=== PATIENT | male | born 1965 | race Caucasian/White ===

== ENCOUNTER 2020-01-23 09:04 | Emergency (ER) | payer MEDICARE, SELFPAY ==
[2020-01-23 09:23] VITALS: BP 159/86; PULSE 72; RESP 16; O2SAT 98; BMI 62.1
--- NOTE | 2020-01-23 09:29 | HMH.EDURI ---
ED Disposition Clinical Impression: Allergic rhinitis, Middle ear effusion Disposition: Home, Self-Care Condition on Discharge: Good Instructions: DI for Allergic Rhinitis Prescriptions: diphenhydrAMINE HCL [Benadryl] 25 mg PO BID #10 cap Transmission Status: Pending to [id number] Referrals: Derrick San [Primary Care Provider] - 3 days Time of Disposition: 09:35 - Critical Care Critical Care Time: No Attestation: On , the high probability of a clinically significant, sudden or life threatening deterioration of the following system(s) required my full and direct attention, intervention and personal management. The time I documented below is in addition to time spent performing reported procedures but includes the following listed in this critical care notation. Medical Decision Making - Medical Records Medical records reviewed: Yes: I reviewed the patient's medical records. - Leandro Inquiry Pt receiving controlled substance: No Orders (Tests/Meds): ED MEDICATIONS Discontinued Medications Generic Name Dose Route Start Last Admin Trade Name Freq PRN Reason Stop Dose Admin Acetaminophen 500 mg 01/23/20 09:20 Tylenol 500mg Tablet PO 01/23/20 09:21 ONCE ONE Lidocaine HCl 15 ml 01/23/20 09:20 Lidocaine 2% Viscous Solution 15ml Udc PO 01/23/20 09:21 ONCE ONE - Reevaluation(s) Time: 09:33 Reevaluation #1: On reevaluation, the patient is feeling better. Breathing comfortably. States that his congestion has had improved. As well as his throat pain. Patient needs to follow-up with PCP in 48 hours. Given strict return precautions. Verbalized understanding. Medical Decision Narrative: This is a 54-year-old male presenting to the emergency department with nasal congestion ear pain. On physical examination, the findings are consistent with allergic rhinitis. There is no obvious focal infection. Patient is afebrile. I did explain to the patient that he should continue his decongestant regimen. Symptoms will improve. There is no evidence of respiratory compromise. Patient treated symptomatically and reevaluated. URI/Sore Throat HPI - General Stated Complaint: drainage,sore throat ear Time Seen by Provider: 01/23/20 09:29 Mode of Arrival: Ambulatory Source of Information: Patient Limitations: No Limitations - History of Present Illness HPI Narrative: This is a 54-year-old male presented to the emergency department with nasal congestion, sore throat and ear pain. Patient is a longstanding history of allergies. She has been taking his Claritin without any relief. He states that the sore throat is more of a dull nagging pain when he swallows. He has had some hoarseness of his voice. However denies any difficulty swallowing. Patient has had some sinus pressure as well. He has had some discharge from the nose as well that is been clear. Patient's ear pain is bilateral, however slightly worse on the left. States that it just feels full. He denies any trauma or inoculation to the ears. He is not having any fevers or chills. No change in vision or eye pain. No headache. No focal weakness. Denies any chest pain or shortness of breath. No cough. No abdominal pain or vomiting. - Related Data Home Medications Medication Instructions Recorded Confirmed Aspirin [Aspir 81] 81 mg PO DAILY 01/18/18 07/16/18 Gabapentin [Gabapentin 300mg Cap] 300 mg PO TID 01/18/18 07/16/18 Levothyroxine Sodium 50 mcg PO DAILY 01/18/18 07/16/18 [Levothyroxine 50mcg (0.05mg) Tab] Metformin HCl [Glucophage 500mg 500 mg PO BID 01/18/18 07/16/18 Tablet] Ranolazine [Ranexa 500mg ER tablet] 500 mg PO BID 01/18/18 07/16/18 Simvastatin 40 mg PO BID 01/18/18 07/16/18 lisinopriL [Lisinopril 2.5mg Tab] 2.5 mg PO DAILY 01/18/18 07/16/18 Albuterol Sulfate [Albuterol HFA 1 - 2 puffs IH Q4-6H PRN 07/16/18 07/16/18 Inhaler] Cefdinir [Omnicef 300mg Capsule] 300 mg PO BID
[2020-01-23 09:53] VITALS: BP 152/87; PULSE 65; RESP 16; TEMP 36.8; O2SAT 98
== END 2020-01-23 09:54 | disposition home or self-care (01) ==
LOC: ER 09:40
PROVIDERS: Emergency Provider Emergency Medicine; PCP Family Medicine
DX: J30.9 Allergic rhinitis, unspecified (principal); H65.93 Unspecified nonsuppurative otitis media, bilateral; I10 Essential (primary) hypertension; Z87.891 Personal history of nicotine dependence; E11.9 Type 2 diabetes mellitus without complications; J44.9 Chronic obstructive pulmonary disease, unspecified; Z79.84 Long term (current) use of oral hypoglycemic drugs; Z79.899 Other long term (current) drug therapy
CPT/HCPCS: 99281

== ENCOUNTER 2022-03-08 19:34 | Emergency (ER) | payer OTHER, MEDICARE, SELFPAY ==
[2022-03-08 19:45] VITALS: BP 0/0; PULSE 0; RESP 0; TEMP -17.7; TEMP 0; O2SAT 0
== END 2022-03-08 19:46 | disposition left against medical advice (07) ==
LOC: ER 19:42
PROVIDERS: Emergency Provider Emergency Medicine; PCP Family Medicine
DX: Z53.21 Procedure and treatment not carried out due to patient leaving prior to being seen by health care provider (principal)

== ENCOUNTER 2022-03-09 07:58 | Emergency (ER) | payer MEDICARE, SELFPAY ==
[2022-03-09 08:00] VITALS: BP 147/69; PULSE 64; RESP 18; TEMP 36.7; O2SAT 97; BMI 27.6
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
--- NOTE | 2022-03-09 08:21 | XR_ITS ---
FINAL REPORT CLINICAL HISTORY: pain, swelling in right forearm FINDINGS: AP and lateral views of the right forearm are obtained. There is no prior exam for comparison. There is no acute osseous abnormality of the right forearm. The wrist and elbow are intact. There is no joint effusion at the elbow. There is mild soft tissue edema along the anterior mid forearm. No foreign body is identified. IMPRESSION: No acute osseous abnormality of the right forearm. Reviewed, Interpreted and Dictated by Kelley Hebert MD Transcribed by Makenzie Martinez Authenticated and [facility]
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
[2022-03-09 09:22] VITALS: BP 147/69; PULSE 64; RESP 18; TEMP 36.7; O2SAT 97
== END 2022-03-09 09:37 | disposition home or self-care (01) ==
PROVIDERS: Emergency Provider Nurse Practitioner; PCP Family Medicine
DX: S50.11XA Contusion of right forearm, initial encounter (principal); M25.431 Effusion, right wrist
CPT/HCPCS: 73090; 93971; 99212; G0463

== ENCOUNTER 2023-06-22 13:09 | Emergency (ER) | payer MEDICARE, SELFPAY ==
[2023-06-22 14:00] VITALS: BP 113/70; PULSE 71; RESP 18; TEMP 36.8; O2SAT 100; BMI 27.2
--- NOTE | 2023-06-22 14:26 | EXP.UTC ---
Discharge Plan Disposition Patient Disposition: Home, Self-Care Condition: Good Prescriptions Prescriptions: New azithromycin [Zithromax Z-Esteban] 250 mg tablet See Rx Instructions .ROUTE .COMPLEX 5 Days Qty: 6 0RF Rx Instructions: For 250 mg dose pack: take 500 mg today (day 1), then 250 mg for 4 days (days 2-5) methylprednisolone [Medrol (Esteban)] 4 mg tablets,dose pack See Rx Instructions .Route .COMPLEX 6 Days Qty: 21 0RF Rx Instructions: taper pack; guaifenesin [Mucinex] 600 mg tablet extended release 12hr 600 mg PO BID PRN (Reason: cough) Qty: 20 0RF No Action albuterol sulfate [Ventolin HFA] 18 GM HFA aerosol inhaler 1 - 2 puffs inhalation Q4-6H PRN (Reason: Shortness Of Breath Or Wheezing) cefdinir 300 MG capsule 300 mg PO BID hydrocodone-chlorpheniramine 115 ML suspension,extended rel 12 hr 5 ml PO Q12 PRN (Reason: Cough) Qty: 90 0RF albuterol sulfate 2.5 MG/NEB solution for nebulization 2.5 mg IH Q4-6H PRN (Reason: Shortness Of Breath Or Wheezing) Qty: 30 1RF diphenhydramine HCl 25 MG capsule 25 mg PO BID Qty: 10 0RF metformin 500 MG tablet 500 mg PO BID aspirin [Aspir-81] 81 MG tablet,delayed release (DR/EC) 81 mg PO DAILY simvastatin 40 MG tablet 40 mg PO BID levothyroxine 50 MCG tablet 50 mcg PO DAILY gabapentin 300 MG capsule 300 mg PO TID lisinopril 2.5 MG tablet 2.5 mg PO DAILY ranolazine 500 MG tablet extended release 12 hr 500 mg PO BID Referrals Follow up/Referrals: Derrick San [Primary Care Provider] - See instructions Activity Restrictions/Add. Instructions Additional Instructions/Restrictions: Start antibiotic today. Be sure to complete entire prescription even if feeling better Monitor temp. Tylenol every 4 hours as needed and / or ibuprofen every 6 hours as needed ( As long as your primary care physician has told you that it ok to take both. For fever/aches/pains ER if no less than 101 despite Tylenol or Motrin Humidifier/vaporizer or hot steamy shower Inhaler every 4-6 hours as needed like we discussed. If unsure how to use it, ask pharmacist to demonstrate how. Should help open airways and improve cough, wheezing, and shortness of breath Mucinex for your cough Be sure to drink lots of water. *Start steroid today. Helps with inflammation therefore, cough and wheezing. Follow directions on the package. Reviewed side effects. Patient reports taking them before. Follow up IMMEDIATELY for new or worsening of symptoms OR no noticeable improvement over the next 48-72 hours. 911 immediately for any life threatening symptoms such as chest pain or difficulty breathing Clinical Impressions Clinical Impression: Bronchitis Sinusitis Qualifiers: Sinusitis location: unspecified location Chronicity: unspecified Qualified Code(s): J32.9 - Chronic sinusitis, unspecified Instructions Patient Instructions: Acute Bronchitis, DI for Sinusitis Discharge ED Provider: Florencia Newell [facility] General Stated complaint: congestion Mode of Arrival: Ambulatory Source of Information: Patient Limitations: No Limitations Time Seen by Provider: 06/22/23 14:26 Description of Symptoms (Recalled from Triage Doc. by RN): PATIENT C/O CHEST CONGESTION, PRODUCTIVE COUGH, AND SINUS PRESSURE X 1 WEEK HEENT Symptoms (Recalled from RN notes): Yes Resp Symptoms (Recalled from RN notes): Yes Skin Symptoms (Recalled from RN notes): No MS Symptoms (Recalled from RN notes): No Functional Status (Recalled from RN notes): WNL History of Present Illness Provider Complaint: Patient states that he has been having sinus pain and pressure, chest congestion and productive cough for over a week now States that he feels like it is trying to move more into his chest area States that he hasnt had any shortness of breath or anything but was concerned when it has been over
[2023-06-22 15:00] VITALS: BP 113/70; PULSE 71; RESP 18; TEMP 36.8; O2SAT 100
== END 2023-06-22 15:03 | disposition home or self-care (01) ==
PROVIDERS: Emergency Provider Nurse Practitioner; PCP Family Medicine
DX: J20.9 Acute bronchitis, unspecified (principal); J01.90 Acute sinusitis, unspecified; R51.9 Headache, unspecified; R05.8 Other specified cough; R09.89 Other specified symptoms and signs involving the circulatory and respiratory systems; R09.81 Nasal congestion; J44.9 Chronic obstructive pulmonary disease, unspecified; I10 Essential (primary) hypertension; E78.5 Hyperlipidemia, unspecified; E03.9 Hypothyroidism, unspecified; Z79.84 Long term (current) use of oral hypoglycemic drugs; Z87.891 Personal history of nicotine dependence
CPT/HCPCS: 96372; 99212; 99214; G0463; J0696

== ENCOUNTER 2023-07-15 20:20 | Emergency (ER) | payer MEDICARE, SELFPAY ==
[2023-07-15 20:32] VITALS: BP 140/70; PULSE 78; RESP 19; TEMP 37.3; O2SAT 100; BMI 26.9
[2023-07-15 20:51] LABS: Influenza A, PCR Not Detected (NotDetected); Influenza B, PCR Not Detected (NotDetected)
--- NOTE | 2023-07-15 21:09 | ED_ITS ---
Discharge Plan Disposition Patient Disposition: Home, Self-Care Prescriptions Prescriptions: New iumnwjntlzmwjrw-jvpemfilf-RC [Bromfed DM] 2-30-10 mg/5 mL syrup 5 ml PO Q6H PRN (Reason: cold symptoms) 4 Days Qty: 118 0RF Rx Instructions: Do not combine with guaifenesin/dextromethorphan No Action albuterol sulfate [Ventolin HFA] 18 GM HFA aerosol inhaler 1 - 2 puffs inhalation Q4-6H PRN (Reason: Shortness Of Breath Or Wheezing) cefdinir 300 MG capsule 300 mg PO BID hydrocodone-chlorpheniramine 115 ML suspension,extended rel 12 hr 5 ml PO Q12 PRN (Reason: Cough) Qty: 90 0RF albuterol sulfate 2.5 MG/NEB solution for nebulization 2.5 mg IH Q4-6H PRN (Reason: Shortness Of Breath Or Wheezing) Qty: 30 1RF diphenhydramine HCl 25 MG capsule 25 mg PO BID Qty: 10 0RF azithromycin [Zithromax Z-Esteban] 250 mg tablet See Rx Instructions .ROUTE .COMPLEX 5 Days Qty: 6 0RF Rx Instructions: For 250 mg dose pack: take 500 mg today (day 1), then 250 mg for 4 days (days 2-5) methylprednisolone [Medrol (Esteban)] 4 mg tablets,dose pack See Rx Instructions .Route .COMPLEX 6 Days Qty: 21 0RF Rx Instructions: taper pack; guaifenesin [Mucinex] 600 mg tablet extended release 12hr 600 mg PO BID PRN (Reason: cough) Qty: 20 0RF metformin 500 MG tablet 500 mg PO BID aspirin [Aspir-81] 81 MG tablet,delayed release (DR/EC) 81 mg PO DAILY simvastatin 40 MG tablet 40 mg PO BID levothyroxine 50 MCG tablet 50 mcg PO DAILY gabapentin 300 MG capsule 300 mg PO TID lisinopril 2.5 MG tablet 2.5 mg PO DAILY ranolazine 500 MG tablet extended release 12 hr 500 mg PO BID Referrals Follow up/Referrals: Derrick San [Primary Care Provider] - See instructions Activity Restrictions/Add. Instructions Additional Instructions/Restrictions: At this time it was felt you are safe to be discharged home. If new or worsening symptoms please do not hesitate to return the emergency department. If symptoms persist please follow-up with your family doctor as you are able. Please take your medication as prescribed and do not take longer than 4 to 5 days as discussed. Clinical Impressions Clinical Impression: Acute viral syndrome Discharge ED Provider: Arian Olmos General Adult HPI General Chief complaint: Upper Respiratory Infection Stated complaint: covid + home test today, weak , runny nose Time Seen by Provider: 07/15/23 20:55 Mode of Arrival: Family Vehicle Source of Information: Patient Limitations: No Limitations Description of Symptoms (Recalled from ER Triage Doc. by RN): 57 yo male tested positive with covid test at home. Presents with cough, nasal drainage, body aches, ears feel full. Denies dyspnea, angina, n/v/d, LEIAV. Low grade fever. History of Present Illness HPI narrative: Patient is a 57-year-old male with past medical history of coronary artery disease, COPD not on home oxygen who presents emergency department for evaluation after a positive COVID test. Patient has been feeling unwell all month, over the last 48 hours he has had cough, nasal drainage, diffuse bodyaches. Adequate p.o. intake. Due to this he presents here for continued evaluation. Related Data Home Medications Medication Instructions Recorded Confirmed aspirin 81 mg tablet,delayed 81 mg PO DAILY Blood thinner 01/18/18 07/16/18 release (Aspir-) gabapentin 300 mg capsule 300 mg PO TID Pain 01/18/18 07/16/18 levothyroxine 50 mcg tablet 50 mcg PO DAILY thyroid 01/18/18 07/16/18 lisinopril 2.5 mg tablet 2.5 mg PO DAILY htn 01/18/18 07/16/18 metformin 500 mg tablet 500 mg PO BID Diabetes 01/18/18 07/16/18 ranolazine 500 mg tablet,extended 500 mg PO BID . 01/18/18 07/16/18 release,12 hr simvastatin 40 mg tablet 40 mg PO BID High cholesterol 01/18/18 07/16/18 albuterol sulfate 90 mcg/actuation 1 - 2 puffs inhalation Q4-6H PRN 07/16/18 07/16/18 aerosol inhaler (Ventolin HFA) Shortness Of Breath Or Wheezing cefdinir 300 mg capsule 300 mg PO BID Sinus infection 07/16/18 07/16/18 Previous Rx's Medication Instructions Recorded albuterol sulfate 2.5 mg/3 mL 2.5 mg (3 mL) IH Q4-6H PRN 07/16/18 (0.083 %) solution for nebulization Shortness Of Breath Or Wheezing #30 neb hydrocodone 10 mg-chlorpheniramine 5 ml PO Q12 PRN Cough ##90 07/16/18 8 mg/5 mL oral susp extend.rel 12hr diphenhydramine HCl 25 mg capsule 25 mg PO BID #10 caps 01/23/20 azithromycin 250 mg tablet See Rx Instructions PO .COMPLEX 5 06/22/23 (Zithromax Z-Esteban) days #6 tabs guaifenesin 600 mg tablet, 600 mg PO BID PRN cough #20 tabs 06/22/23 extended release 12 hr (Mucinex) methylprednisolone 4 mg tablets in See Rx Instructions .Route 06/22/23 a dose pack (Medrol (Esteban)) .COMPLEX 6 days #21 tabs pelsbasofbznkxx-uepebyroxebqagc-PD 5 ml PO Q6H PRN cold symptoms 4 07/15/23 2 mg-30 mg-10 mg/5 mL oral syrup days #118 mL (Bromfed DM) Allergies Allergy/AdvReac Type Severity Reaction Status Date / Time No Known Allergies Allergy Verified 01/18/18 21:51 [facility] Disclaimer: The information contained in this section may have been updated after the patient was seen, as this information can be updated by other users. Medical History (Updated 07/15/23 @ 21:14 by Arian Olmos MD) Hyperlipidemia Hypertension Social History Smoking Status: Former smoker alcohol intake: never current occupational status: employed Travel in the last 8 weeks: None ROS Obtained: Yes Systems reviewed as appropriate & no additional complaints except as documented Physical Exam General General appearance: alert and in no apparent distress Head Head exam: atraumatic and normocephalic Eye Eye exam: Present PERRL and EOMI ENT ENT exam: Present mucous membranes moist; Absent normal oropharynx (Mildly erythematous posterior oropharynx, uvula midline, no purulence) Neck Neck exam: Present normal inspection Chest Chest inspection: Present normal inspection and symmetric chest wall rise Respiratory Respiratory exam: Present normal lung sounds bilaterally; Absent respiratory distress, wheezes, accessory muscle use or prolonged expiratory phase Cardiovascular Cardiovascular exam: Present regular rate and normal rhythm Abdominal Exam Abdominal exam: Present soft Extremities Exam Extremities exam: Present normal inspection Neurological Exam Neurological exam: Present alert Psychiatric Psychiatric exam: Present normal affect Skin Skin exam: Present warm and dry Medical Decision Making Leandro Inquiry Pt receiving controlled substance: No Vital Signs: 07/15/23 20:32 Temperature 99.1 F Temperature Source Oral Pulse Rate [Right Brachial] 78 Respiratory Rate 19 Blood Pressure [Right Arm] 140/70 Blood Pressure Mean [Right Arm] 93 Blood Pressure Source [Right Arm] Automatic Cuff Blood Pressure Position [Right Arm] Sitting 02 Sat by Pulse Oximetry 100 Oxygen Delivery Method Room Air Orders (Tests/Meds): ED MEDICATIONS Generic Name Dose Route Start Last Admin Trade Name Freq PRN Reason Stop Dose Admin Acetaminophen 1,000 mg 07/15/23 21:08 Acetaminophen 500mg Tab PO 07/15/23 21:09 ONCE ONE Guaifenesin 5 ml 07/15/23 21:07 Guaifenesin/Dextromethorphan 200mg/20mg 10ml Udc PO 07/15/23 21:08 ONCE ONE Ibuprofen 800 mg 07/15/23 21:08 Ibuprofen 400 Mg Tablet PO 07/15/23 21:09 ONCE ONE ORDERS Category Date Time Status Rapid PCR Covid and Flu A/B Stat Lab 07/15/23 20:35 Received Medical Decision Narrative: In summary patient is a 57-year-old male with past medical history described above who presents emergency department for evaluation of cough, body aches in the setting of positive home COVID test. Patient is hemodynamically stable nontoxic-appearing upon arrival, afebrile, saturating 100% on room air, no respiratory distress. Differential includes COVID, influenza, among others. Workup will be conducted with viral swab. Chest x-ray was considered however given patient is not in respiratory distress and is clear to auscultation all lung wren will be deferred. Initial interventions include Tylenol, ibuprofen, Robitussin. Although patient has COPD he has no wheezing currently that would require steroids or DuoNeb's. Discussion has projected disease course was had at bedside and patient is appropriate for discharge at this time will be discharged with a course of Bromfed and was given return precautions and verbalized understanding. Critical Care Critical Care Time Critical Care Time: No
[2023-07-15 21:32] LABS: Coronavirus 19, PCR Detected (NotDetected)
[2023-07-15] MEDS: GUAIFENESIN/DEXTROMETHORPHAN 200MG/20MG 10ML UDC 5 ML PO (21:41)
[2023-07-15] MEDS: ACETAMINOPHEN 500MG TAB 1000 MG PO (21:41)
[2023-07-15] MEDS: IBUPROFEN 400 MG TABLET 800 MG PO (21:41)
[2023-07-15 21:48] VITALS: BP 156/72; PULSE 79; RESP 16; TEMP 37.1; O2SAT 97
== END 2023-07-15 21:50 | disposition home or self-care (01) ==
PROVIDERS: Emergency Provider Emergency Medicine; PCP Family Medicine
DX: R05.9 Cough, unspecified (principal); R50.9 Fever, unspecified; B34.9 Viral infection, unspecified; J44.9 Chronic obstructive pulmonary disease, unspecified; I25.10 Atherosclerotic heart disease of native coronary artery without angina pectoris; I10 Essential (primary) hypertension; E78.5 Hyperlipidemia, unspecified; Z87.891 Personal history of nicotine dependence
CPT/HCPCS: 87636; 99283

== ENCOUNTER 2024-07-08 11:44 | Emergency (ER) | payer MEDICARE, SELFPAY ==
--- NOTE | 2024-07-08 12:12 | ED_ITS ---
Discharge Plan Disposition Patient Disposition: Home, Self-Care Condition: Good Prescriptions Prescriptions: New benzonatate 100 mg capsule 100 mg PO TIDP PRN (Reason: Cough) Qty: 30 0RF amoxicillin-pot clavulanate 875-125 mg Tablet 1 tab PO Q12H Qty: 20 0RF methylprednisolone 4 mg Tablets,Dose Pack 4 mg PO DIRECTED 6 Days Qty: 21 0RF Rx Instructions: Take 1 pack as directed for 6 days No Action albuterol sulfate [Ventolin HFA] 18 GM HFA aerosol inhaler 1 - 2 puffs inhalation Q4-6H PRN (Reason: Shortness Of Breath Or Wheezing) cefdinir 300 MG capsule 300 mg PO BID hydrocodone-chlorpheniramine 115 ML suspension,extended rel 12 hr 5 ml PO Q12 PRN (Reason: Cough) Qty: 90 0RF albuterol sulfate 2.5 MG/NEB solution for nebulization 2.5 mg IH Q4-6H PRN (Reason: Shortness Of Breath Or Wheezing) Qty: 30 1RF diphenhydramine HCl 25 MG capsule 25 mg PO BID Qty: 10 0RF azithromycin [Zithromax Z-Esteban] 250 mg tablet See Rx Instructions .ROUTE .COMPLEX 5 Days Qty: 6 0RF Rx Instructions: For 250 mg dose pack: take 500 mg today (day 1), then 250 mg for 4 days (days 2-5) methylprednisolone [Medrol (Esteban)] 4 mg tablets,dose pack See Rx Instructions .Route .COMPLEX 6 Days Qty: 21 0RF Rx Instructions: taper pack; guaifenesin [Mucinex] 600 mg tablet extended release 12hr 600 mg PO BID PRN (Reason: cough) Qty: 20 0RF metformin 500 MG tablet 500 mg PO BID aspirin [Aspir-81] 81 MG tablet,delayed release (DR/EC) 81 mg PO DAILY simvastatin 40 MG tablet 40 mg PO BID levothyroxine 50 MCG tablet 50 mcg PO DAILY gabapentin 300 MG capsule 300 mg PO TID lisinopril 2.5 MG tablet 2.5 mg PO DAILY ranolazine 500 MG tablet extended release 12 hr 500 mg PO BID liedenzuzviivks-rtcsjevfh-JB [Bromfed DM] 2-30-10 mg/5 mL syrup 5 ml PO Q6H PRN (Reason: cold symptoms) 4 Days Qty: 118 0RF Rx Instructions: Do not combine with guaifenesin/dextromethorphan Referrals Follow up/Referrals: Derrick San [Primary Care Provider] - See instructions Activity Restrictions/Add. Instructions Additional Instructions/Restrictions: Drink plenty of fluids. Take tylenol or ibuprofen for pain or fever. Take the medications as directed. Follow up with your regular doctor. GO TO THE ER FOR ANY WORSENING SYMPTOMS Clinical Impressions Clinical Impression: Middle ear effusion Sinusitis Qualifiers: Sinusitis location: unspecified location Chronicity: unspecified Qualified Code(s): J32.9 - Chronic sinusitis, unspecified Instructions Patient Instructions: Sinusitis, DI for Sinusitis Print Language Print Language: Greek Discharge ED Provider: Eligio Benitez [facility] General Stated complaint: drainage, ear pain, sinus congestion Time Seen by Provider: 07/08/24 12:12 Related Data Home Medications ?Medication ?Instructions ?Recorded ?Confirmed aspirin 81 mg tablet,delayed 81 mg PO DAILY Blood thinner 01/18/18 07/16/18 release (Aspir-) gabapentin 300 mg capsule 300 mg PO TID Pain 01/18/18 07/16/18 levothyroxine 50 mcg tablet 50 mcg PO DAILY thyroid 01/18/18 07/16/18 lisinopril 2.5 mg tablet 2.5 mg PO DAILY htn 01/18/18 07/16/18 metformin 500 mg tablet 500 mg PO BID Diabetes 01/18/18 07/08/24 ranolazine 500 mg tablet,extended 500 mg PO BID . 01/18/18 07/08/24 release,12 hr simvastatin 40 mg tablet 40 mg PO BID High cholesterol 01/18/18 07/08/24 albuterol sulfate 90 mcg/actuation 1 - 2 puffs inhalation Q4-6H PRN 07/16/18 07/16/18 aerosol inhaler (Ventolin HFA) Shortness Of Breath Or Wheezing cefdinir 300 mg capsule 300 mg PO BID Sinus infection 07/16/18 07/16/18 Previous Rx's ?Medication ?Instructions ?Recorded albuterol sulfate 2.5 mg/3 mL 2.5 mg (3 mL) IH Q4-6H PRN 07/16/18 (0.083 %) solution for nebulization Shortness Of Breath Or Wheezing #30 neb hydrocodone 10 mg-chlorpheniramine 5 ml PO Q12 PRN Cough ##90 07/16/18 8 mg/5 mL oral susp extend.rel 12hr diphenhydramine HCl 25 mg capsule 25 mg PO BID #10 caps 01/23/20 azithromycin 250 mg tablet See Rx Instructions PO .COMPLEX 5 06/22/23 (Zithromax Z-Esteban) days #6 tabs guaifenesin 600 mg tablet, 600 mg PO BID PRN cough #20 tabs 06/22/23 extended release 12 hr (Mucinex) methylprednisolone 4 mg tablets in See Rx Instructions .Route 06/22/23 a dose pack (Medrol (Esteban)) .COMPLEX 6 days #21 tabs gbsmwafmnecinmz-azjbqzmezammyke-[place] 5 ml PO Q6H PRN cold symptoms 4 07/15/23 2 mg-30 mg-10 mg/5 mL oral syrup days #118 mL (Bromfed DM) amoxicillin 875 mg-potassium 1 tab PO Q12H #20 tabs 07/08/24 clavulanate 125 mg tablet benzonatate 100 mg capsule 100 mg PO TIDP PRN Cough #30 caps 07/08/24 methylprednisolone 4 mg tablets in 4 mg PO DIRECTED 6 days #21 tabs 07/08/24 a dose pack Allergies Allergy/AdvReac Type Severity Reaction Status Date / Time No Known Allergies Allergy Verified 01/18/18 21:51 [facility] Disclaimer: The information contained in this section may have been updated after the patient was seen, as this information can be updated by other users. Medical History (Updated 07/08/24 @ 12:59 by Eligio Benitez APRN) Hyperlipidemia Hypertension Social History Smoking Status: Former smoker alcohol intake: never current occupational status: employed Travel in the last 8 weeks: None Have you lived/traveled outside [place] in past 30 days?: No Contact w/someone who lives/traveled outside [place] past 30 days?: No Exposure to someone with infectious disease in past 14 days?: No Do you have a fever (greater than 100.4 F or 38 C)?: No Have you tested positive for COVID-19: No Exposed to someone with COVID-19 in past 14 days?: No Do you have a sore throat?: No Do you have a cough?: No Do you have any weakness?: No Do you have any diarrhea?: No Are you experiencing any unusual bleeding?: No Do you have any muscle aches/pain?: No Do you have any abdominal pain?: No Are you experiencing loss of taste or smell?: No ROS Obtained: Yes All systems reviewed & no additional complaints except as documented Constitutional Constitutional: Denies chills, Reports fever(s) and Reports poor appetite Eyes Eyes: Denies eye discharge ENT Ears, Nose, Mouth, and Throat: Denies ear discharge, Reports otalgia, Denies hearing loss, Denies sinus pain and Reports sore throat Cardiovascular Cardiovascular: Denies chest pain and Denies dyspnea Respiratory Respiratory: Denies chest congestion, Reports cough and Denies dyspnea Gastrointestinal Gastrointestingal: Denies abdominal pain, diarrhea, nausea or vomiting Musculoskeletal Musculoskeletal: Denies arthralgias Integumentary/Breasts Skin/Breast: Denies rash Physical Exam General General appearance: alert and in no apparent distress Head Head exam: atraumatic, normocephalic and normal inspection Eye Eye exam: Present normal appearance; Absent PERRL or EOMI ENT ENT exam: Present mucous membranes moist and normal external ear exam Expanded ENT Exam TM/Canal exam: Bilateral TM: erythema, bulging and effusion Nose exam: Absent sinus tenderness Nasal speculum exam: Bilateral: normal Mouth exam: Present normal external inspection and other; Absent drooling Teeth exam: Present normal inspection Throat exam: Present tonsillar erythema and tonsillomegaly Neck Neck exam: Present normal inspection, full ROM and trachea midline; Absent tenderness, meningismus or lymphadenopathy Chest Chest inspection: Present normal inspection and symmetric chest wall rise; Absent tenderness Respiratory Respiratory exam: Present normal lung sounds bilaterally; Absent respiratory distress, wheezes or stridor Cardiovascular Cardiovascular exam: Present regular rate, normal rhythm and normal heart sounds; Absent tachycardia or irregular rhythm Abdominal Exam Abdominal exam: Present soft and normal bowel sounds; Absent distention, tenderness, guarding, rebound or rigidity Extremities Exam Extremities exam: Present normal inspection and normal capillary refill; Absent tenderness, joint swelling or calf tenderness Back Exam Back exam: Present normal inspection and full ROM; Absent tenderness, CVA tenderness (R) or CVA tenderness (L) Neurological Exam Neurological exam: Present alert, oriented X3, CN II-XII intact, normal gait and reflexes normal; Absent motor sensory deficit Psychiatric Psychiatric exam: Present normal affect and normal mood Skin Skin exam: Present warm, dry, intact and normal color Lymphatic Lymphatic Findings: no adenopathy Medical Decision Making Medical Records Medical records reviewed: No I reviewed the patient's medical records. Screening: Per USPSTF and CDC recommendations, given the prevalence of disease in our region, it is our hospital?s policy to screen for HIV and viral Hepatitis for all patients aged 18 and over and those with ongoing risk factors. Leandro Inquiry Pt receiving controlled substance: No Lab Data Lab results reviewed: Yes I reviewed the patient's lab results.
[2024-07-08 12:15] VITALS: BP 137/74; PULSE 65; RESP 18; TEMP 36.8; O2SAT 95; BMI 27.8
[2024-07-08 12:19] LABS: UTC Strep Screen (Rapid) Negative (Negative)
[2024-07-08 13:04] VITALS: BP 137/74; PULSE 65; RESP 18; TEMP 36.8
[2024-07-08] MEDS: DEXAMETHASONE 4MG/ML 1ML VIAL 8 MG IM (13:07)
[2024-07-08 13:10] LABS: Coronavirus 19, PCR Not Detected (NotDetected); Influenza A, PCR Not Detected (NotDetected); Influenza B, PCR Not Detected (NotDetected)
== END 2024-07-08 13:24 | disposition home or self-care (01) ==
PROVIDERS: Emergency Provider Nurse Practitioner Family; PCP Family Medicine
DX: J32.9 Chronic sinusitis, unspecified (principal); H65.90 Unspecified nonsuppurative otitis media, unspecified ear; R50.9 Fever, unspecified; H92.03 Otalgia, bilateral; R09.81 Nasal congestion; J02.9 Acute pharyngitis, unspecified; R05.9 Cough, unspecified; R63.8 Other symptoms and signs concerning food and fluid intake
CPT/HCPCS: 87636; 87880; 96372; 99212; G0381; J1100

== ENCOUNTER 2024-07-17 07:08 | Emergency (ER) | payer MEDICARE, SELFPAY ==
[2024-07-17] VITALS (11 sets, daily range): BP systolic 134–158; BP diastolic 63–78; PULSE 64–79; RESP 18; TEMP 36.7–36.9; O2SAT 96–100; BMI 27.3
--- NOTE | 2024-07-17 07:40 | PC.NURSE ---
dr joy at bedside
--- NOTE | 2024-07-17 07:51 | CT_ITS ---
FINAL REPORT TECHNIQUE: Thin section axial CT images with coronal and sagittal reformats were performed after the administration of IV contrast. This study was performed with techniques to keep radiation doses as low as reasonably achievable (ALARA). Individualized dose reduction techniques using automated exposure control or adjustment of mA and/or kV according to the patient''s size were employed. CLINICAL HISTORY: left submandibular mass/swelling FINDINGS: The nasopharynx and oropharynx are unremarkable. The epiglottis is normal. The larynx is unremarkable. There is an enlargement of the left submandibular/salivary gland with surrounding edema. There are multiple adjacent small lymph nodes. Findings are most consistent with sialadenitis. There is no loculated fluid collection. The right submandibular/salivary and bilateral parotid glands are unremarkable. The thyroid gland is homogeneous. Bilateral cervical lymph nodes are favored to be reactive. A small mucous retention cyst or polyp is seen in the left maxillary sinus. There is no air-fluid level in the paranasal sinuses. The mastoid air cells are clear. No acute osseous changes are seen. IMPRESSION: Left submandibular sialadenitis with reactive lymphadenopathy. Reviewed, Interpreted and Dictated by Kelley Hebert MD Transcribed by Clair Mcdaniels Authenticated and [facility]
--- NOTE | 2024-07-17 07:56 | XR_ITS ---
FINAL REPORT CLINICAL HISTORY: cough x 1 week COMPARISON: 07/16/2018 FINDINGS: PA and lateral views of the chest were obtained. The patient is status post median sternotomy. The cardiac and mediastinal silhouettes are within normal limits. The lungs are clear. There is no pleural effusion or pneumothorax. No acute osseous abnormality is identified. IMPRESSION: No radiographic evidence of acute cardiac or pulmonary disease. Reviewed, Interpreted and Dictated by Kelley Hebert MD Transcribed by Clair Mcdaniels Authenticated and [facility]
--- NOTE | 2024-07-17 08:01 | HMH.EDGENADL ---
Discharge Plan Disposition Patient Disposition: Home, Self-Care Prescriptions Prescriptions: New paeacqlpdpzecyy-divknlhto-MT 2-30-10 mg/5 mL syrup 5 ml PO Q6H PRN (Reason: cold symptoms) 7 Days Qty: 118 0RF No Action albuterol sulfate [Ventolin HFA] 18 GM HFA aerosol inhaler 1 - 2 puffs inhalation Q4-6H PRN (Reason: Shortness Of Breath Or Wheezing) cefdinir 300 MG capsule 300 mg PO BID hydrocodone-chlorpheniramine 115 ML suspension,extended rel 12 hr 5 ml PO Q12 PRN (Reason: Cough) Qty: 90 0RF albuterol sulfate 2.5 MG/NEB solution for nebulization 2.5 mg IH Q4-6H PRN (Reason: Shortness Of Breath Or Wheezing) Qty: 30 1RF diphenhydramine HCl 25 MG capsule 25 mg PO BID Qty: 10 0RF azithromycin [Zithromax Z-Esteban] 250 mg tablet See Rx Instructions .ROUTE .COMPLEX 5 Days Qty: 6 0RF Rx Instructions: For 250 mg dose pack: take 500 mg today (day 1), then 250 mg for 4 days (days 2-5) methylprednisolone [Medrol (Esteban)] 4 mg tablets,dose pack See Rx Instructions .Route .COMPLEX 6 Days Qty: 21 0RF Rx Instructions: taper pack; guaifenesin [Mucinex] 600 mg tablet extended release 12hr 600 mg PO BID PRN (Reason: cough) Qty: 20 0RF metformin 500 MG tablet 500 mg PO BID aspirin [Aspir-81] 81 MG tablet,delayed release (DR/EC) 81 mg PO DAILY simvastatin 40 MG tablet 40 mg PO BID levothyroxine 50 MCG tablet 50 mcg PO DAILY gabapentin 300 MG capsule 300 mg PO TID lisinopril 2.5 MG tablet 2.5 mg PO DAILY ranolazine 500 MG tablet extended release 12 hr 500 mg PO BID pzlcsiysodqpttu-pmwcnsjiq-GI [Bromfed DM] 2-30-10 mg/5 mL syrup 5 ml PO Q6H PRN (Reason: cold symptoms) 4 Days Qty: 118 0RF Rx Instructions: Do not combine with guaifenesin/dextromethorphan benzonatate 100 mg capsule 100 mg PO TIDP PRN (Reason: Cough) Qty: 30 0RF amoxicillin-pot clavulanate 875-125 mg Tablet 1 tab PO Q12H Qty: 20 0RF methylprednisolone 4 mg Tablets,Dose Pack 4 mg PO DIRECTED 6 Days Qty: 21 0RF Rx Instructions: Take 1 pack as directed for 6 days Referrals Follow up/Referrals: Miki Wong MD [Physician] - See instructions Derrick San [Primary Care Provider] - See instructions Activity Restrictions/Add. Instructions Additional Instructions/Restrictions: As discussed your symptoms are consistent with viral sialoadenitis caused from influenza A. This is essentially a localized infection of your submandibular gland caused from a virus which will be self-limiting. No specific treatment exists other than allowing the virus to run its course. You are outside of any window of treatment for antiviral medications as discussed. This is not a bacterial infection therefore you may discontinue antibiotics. Please follow-up with ENT to ensure complete resolution of your symptoms if you would like otherwise you may follow-up with your primary care doctor. Clinical Impressions Clinical Impression: Submandibular sialoadenitis, Influenza A Instructions Patient Instructions: DI for Skin Abscess Print Language Print Language: Czech Discharge ED Provider: Mariia Gonzalez General Adult HPI General Chief complaint: Skin/Abscess/Foreign Body Stated complaint: Swelling to L side of neck, feel draining in mouth Time Seen by Provider: 07/17/24 07:39 Mode of Arrival: Ambulatory Source of Information: Patient Limitations: No Limitations Description of Symptoms (Recalled from ER Triage Doc. by RN): left sided swelling to neck with a bad tast in his mouth. currently on antibiotics. History of Present Illness HPI narrative: Patient is a 58-year-old male presenting today with left submandibular swelling. First noted this on Nani. However he did have a preceding cough and respiratory infection which she was seen in the urgent treatment clinic and was swabbed for COVID and flu which were negative and started on Augmentin as well as steroids without any improvement. Though symptoms remain. Denies any mass or neck swelling prior to a few days ago. No fevers or chills. No history of stones or pus coming from his mouth. Related Data Home Medications ?Medication ?Instructions ?Recorded ?Confirmed aspirin 81 mg tablet,delayed 81 mg PO DAILY Blood thinner 01/18/18 07/16/18 release (Aspir-) gabapentin 300 mg capsule 300 mg PO TID Pain 01/18/18 07/16/18 levothyroxine 50 mcg tablet 50 mcg PO DAILY thyroid 01/18/18 07/16/18 lisinopril 2.5 mg tablet 2.5 mg PO DAILY htn 01/18/18 07/16/18 metformin 500 mg tablet 500 mg PO BID Diabetes 01/18/18 07/08/24 ranolazine 500 mg tablet,extended 500 mg PO BID . 01/18/18 07/08/24 release,12 hr simvastatin 40 mg tablet 40 mg PO BID High cholesterol 01/18/18 07/08/24 albuterol sulfate 90 mcg/actuation 1 - 2 puffs inhalation Q4-6H PRN 07/16/18 07/16/18 aerosol inhaler (Ventolin HFA) Shortness Of Breath Or Wheezing cefdinir 300 mg capsule 300 mg PO BID Sinus infection 07/16/18 07/16/18 Previous Rx's ?Medication ?Instructions ?Recorded albuterol sulfate 2.5 mg/3 mL 2.5 mg (3 mL) IH Q4-6H PRN 07/16/18 (0.083 %) solution for nebulization Shortness Of Breath Or Wheezing #30 neb hydrocodone 10 mg-chlorpheniramine 5 ml PO Q12 PRN Cough ##90 07/16/18 8 mg/5 mL oral susp extend.rel 12hr diphenhydramine HCl 25 mg capsule 25 mg PO BID #10 caps 01/23/20 azithromycin 250 mg tablet See Rx Instructions PO .COMPLEX 5 06/22/23 (Zithromax Z-Esteban) days #6 tabs guaifenesin 600 mg tablet, 600 mg PO BID PRN cough #20 tabs 06/22/23 extended release 12 hr (Mucinex) methylprednisolone 4 mg tablets in See Rx Instructions .Route 06/22/23 a dose pack (Medrol (Esteban)) .COMPLEX 6 days #21 tabs xjhdvzrrxbighjc-sjealclckvlqstu-AB 5 ml PO Q6H PRN cold symptoms 4 07/15/23 2 mg-30 mg-10 mg/5 mL oral syrup days #118 mL (Bromfed DM) amoxicillin 875 mg-potassium 1 tab PO Q12H #20 tabs 07/08/24 clavulanate 125 mg tablet benzonatate 100 mg capsule 100 mg PO TIDP PRN Cough #30 caps 07/08/24 methylprednisolone 4 mg tablets in 4 mg PO DIRECTED 6 days #21 tabs 07/08/24 a dose pack clmgwjkewlcwjzs-epzawcijckbhrim-UT 5 ml PO Q6H PRN cold symptoms 7 07/17/24 2 mg-30 mg-10 mg/5 mL oral syrup days #118 mL Allergies Allergy/AdvReac Type Severity Reaction Status Date / Time No Known Allergies Allergy Verified 01/18/18 21:51 [facility] Disclaimer: The information contained in this section may have been updated after the patient was seen, as this information can be updated by other users. Medical History (Updated 07/17/24 @ 09:32 by Mariia Gonzalez MD) Hyperlipidemia Hypertension Social History Smoking Status: Never smoker alcohol intake: never current occupational status: employed Travel in the last 8 weeks: None Have you lived/traveled outside [place] in past 30 days?: No Contact w/someone who lives/traveled outside [place] past 30 days?: No Exposure to someone with infectious disease in past 14 days?: No Do you have a fever (greater than 100.4 F or 38 C)?: No Have you tested positive for COVID-19: No Exposed to someone with COVID-19 in past 14 days?: No Do you have a sore throat?: No Do you have a cough?: No Do you have any weakness?: No Do you have any diarrhea?: No Are you experiencing any unusual bleeding?: No Do you have any muscle aches/pain?: No Do you have any abdominal pain?: No Are you experiencing loss of taste or smell?: No Other Medical History Have you received the Flu Vaccine for this season: No Have you received the Pneumonia Vaccine: No ROS Obtained: Yes All systems reviewed & no additional complaints except as documented Physical Exam General General appearance: alert Neck Neck exam: Present other (Left unilateral submandibular swelling and firmness about 5 x 5 cm nonfluctuant nonmobile no stones noted within the mouth itself near any of the ductal openings no purulence coming from the mouth) Respiratory Respiratory exam: Present normal lung sounds bilaterally Cardiovascular Cardiovascular exam: Present regular rate Neurological Exam Neurological exam: Present alert and oriented X3 Medical Decision Making Medical Records Screening: Per USPSTF and CDC recommendations, given the prevalence of disease in our region, it is our hospital?s policy to screen for HIV and viral Hepatitis for all patients aged 18 and over and those with ongoing risk factors. Leandro Inquiry Pt receiving controlled substance: No Vital Signs: 07/17/24 07:10 07/17/24 07:14 07/17/24 07:30 Temperature 98.4 F Temperature Source Oral Pulse Rate 67 64 Pulse Rate [Right] 68 Respiratory Rate 18 Blood Pressure 144/64 H 140/63 Blood Pressure [Right Arm] 144/64 H Blood Pressure Mean [Right Arm] 90 02 Sat by Pulse Oximetry 99 98 98 Oxygen Delivery Method Room Air 07/17/24 07:45 07/17/24 08:00 07/17/24 08:15 Temperature Temperature Source Pulse Rate 67 73 74 Pulse Rate [Right] Respiratory Rate Blood Pressure 134/66 141/71 H 145/71 H Blood Pressure [Right Arm] Blood Pressure Mean [Right Arm] 02 Sat by Pulse Oximetry 98 96 98 Oxygen Delivery Method 07/17/24 08:30 07/17/24 08:45 07/17/24 09:15 Temperature Temperature Source Pulse Rate 67 70 79 Pulse Rate [Right] Respiratory Rate Blood Pressure 137/72 146/69 H 158/76 H Blood Pressure [Right Arm] Blood Pressure Mean [Right Arm] 02 Sat by Pulse Oximetry 99 99 96 Oxygen Delivery Method 07/17/24 09:30 Temperature Temperature Source Pulse Rate 71 Pulse Rate [Right] Respiratory Rate Blood Pressure 151/78 H Blood Pressure [Right Arm] Blood Pressure Mean [Right Arm] 02 Sat by Pulse Oximetry 100 Oxygen Delivery Method Lab Data Lab results reviewed: Yes I reviewed the patient's lab results. Lab Results 07/17/24 08:00: WBC 8.1, RBC 5.25, Hgb 15.6, Hct 46.6, MCV 88.8, MCH 29.7, MCHC 33.5, RDW 13.0, Plt Count 201, MPV 9.7, Neut % (Auto) 65.7, Lymph % (Auto) 22.5, Esmeralda % (Auto) 8.1, Eos % (Auto) 2.5, Baso % (Auto) 0.6, Neut # (Auto) 5.4, Lymph # (Auto) 1.8, Esmeralda # (Auto) 0.7, Eos # (Auto) 0.2, Baso # (Auto) 0.1, Sodium 138, Potassium 4.3, Chloride 101, Carbon Dioxide 30, Anion Gap 11.3, BUN 22 H, Creatinine 1.40 H, Estimated Creat Clear 63, Estimated GFR 52 L, Est GFR ( Amer) 63, Glucose 88, Calcium 10.1, Total Bilirubin 0.9, AST 32, ALT 39, Alkaline Phosphatase 66, Total Protein 8.0, Albumin 5.0, Globulin 3.0, Albumin/Globulin Ratio 1.7, SARS-CoV-2 (PCR) Not detected, Influenza A Untype (PCR) Detected A, Influenza Type B (PCR) Not detected 07/17/24 08:00 07/17/24 08:00 Orders (Tests/Meds): ED MEDICATIONS Discontinued Medications Generic Name Dose Route Start Last Admin Trade Name Freq PRN Reason Stop Dose Admin Sodium Chloride 1,000 mls @ 999 mls/hr 07/17/24 08:00 07/17/24 08:06 Sod Chlor 0.9% 1000ml Bag IV 07/17/24 09:00 999 mls/hr .Q1H1M JESSIE Administration Iopamidol 75 ml 07/17/24 09:06 07/17/24 09:06 Iopamidol-370 (76%);100ml Bottle IV 07/17/24 09:07 75 ml ONCE ONE Administration Sodium Chloride 10 ml 07/17/24 09:06 07/17/24 09:06 Sodium Chloride 0.9% 10ml Syr (Rad Only) IV 07/17/24 09:07 10 ml ONCE ONE Administration ORDERS Category Date Time Status CT soft tissue neck w con Stat Cat Scan 07/17/24 07:51 Completed Chest XR 2 view (NOT portable) [XR chest 2V] Stat Exams 07/17/24 07:56 Completed POCUS Point of Care (ER Only) Stat Exams 07/17/24 07:42 Completed CBC w/Auto Diff [Complete Blood Count Auto Diff] Stat Lab 07/17/24 08:00 Completed CMP [Comprehensive Metabolic Panel] Stat Lab 07/17/24 08:00 Completed HIV (1&2) Antibody Rapid Stat Lab 07/17/24 07:23 Ordered Hep C Ab with Reflex to RNA Stat Lab 07/17/24 07:23 Ordered Rapid PCR Covid and Flu A/B Stat Lab 07/17/24 08:00 Completed Medical Decision Narrative: 58-year-old male with above history and physical. Has unilateral submandibular swelling and tenderness. Limited bedside ultrasound of this area did demonstrate some shotty adenopathy but more specifically localized soft tissue swelling that did not demonstrate that this is a lymph node most likely localized swelling and infection of the submandibular gland itself, sialoadenitis. I did not feel a stone however obstructive causes such as from a stone are certainly on the differential as well. However given his recent viral symptoms that is most likely the explanation. There is some shotty adenopathy around this region and he is not improving on Augmentin so it is unlikely to be a primary bacterial infection. Reassessments 956 CT scan was performed which I personally interpreted which shows significant swelling of the submandibular gland consistent with viral sialoadenitis in the setting of a positive influenza A test. No abscess or mass or other abnormality seen. Radiology read consistent with this as well this should be self-limiting patients outside of any window for antiviral medications. Antibiotics are not indicated he may follow-up with ENT to ensure resolution but this is not also indicated unless he is concerned. Supportive care discussed has been given some symptomatic medications to go home with regarding his cough. No pneumonia noted on his chest x-ray which I personally interpreted. He is also been on Augmentin and if this were a bacterial infection that should have adequately treated most community-acquired pneumonia's. Overall patient appears well on discharge follow-up instructions and return precautions emphasized was discharged in stable condition Procedures Miscellaneous Procedure Procedure Performed: Limited soft tissue ultrasound Indication: Left submandibular unilateral neck swelling Identified structures: Location: Left submandibular space Findings: Shotty lymphadenopathy however there is a localized area of soft tissue swelling/mass with fluid within it most likely localized inflammation of the submandibular gland itself Impression: Soft tissue mass/swelling and shotty lymphadenopathy of unclear significance but likely submandibular gland localized inflammation Images were saved to permanent archive The study was technically adequate Soft Tissue CPT Codes: CPT Neck: 54768-66 CPT Upper extremity: 49339-81 CPT Axilla: 71297-28 CPT Chest wall: 23511-35 CPT Breast: 71399-67-YQ/LT (complete), 16927-89-ND/LT (limited), CPT Upper Back: 20456-02 CPT Lower Back: 56911-82 CPT Abdominal Wall: 42550-39 CPT Pelvic Wall: 52574-31 CPT Lower Extremity: 24958-36 CPT Other Soft Tissue: 45328-77 This study was performed by me, and I personally interpreted all images/videos. Based on my clinical judgement, these images were adequate and did not necessitate further imaging. Critical Care Critical Care Time Critical Care Time: No
[2024-07-17] MEDS: 0.9 % SODIUM CHLORIDE 1000ML 1,000 ML 999 ML IV (08:06)
[2024-07-17 08:18] LABS: Coronavirus 19, PCR Not Detected (NotDetected); Influenza B, PCR Not Detected (NotDetected)
[2024-07-17 08:20] LABS: Basophils # 0.1 K/mm3 (0-0.2); Eosinophils # 0.2 K/mm3 (0.0-0.4); Neutrophils # 5.4 K/mm3 (1.8-7.8)
[2024-07-17 08:31] LABS: Mean Platelet Volume 9.7 fl (7.4-10.4)
[2024-07-17 08:39] LABS: Alanine Aminotransferase 39 U/L (12-78); Albumin/Globulin Ratio 1.7 (1.1-1.8); Alkaline Phosphatase 66 U/L (38-126); Anion Gap 11.3 mEq/L (5-15); Aspartate Amino Transferase 32 U/L (17-59); Bilirubin,Total 0.9 mg/dl (0.2-1.3); Blood Urea Nitrogen 22 mg/dl (9-20); Calcium 10.1 mg/dl (8.4-10.2); Carbon Dioxide 30 mmol/L (22.0-30.0); Chloride 101 mmol/L (98-107); Creatinine Clearance Estimated 63 mL/min (50-200); Estimated Glomerular Filt Rate 52 ml/min (>60); GFR (African American) 63 ML/MIN (>60); Glucose 88 mg/dl (74-100); Potassium 4.3 mmoL/L (3.5-5.1); Sodium 138 mmol/L (136-145)
[2024-07-17 08:50] LABS: Basophils % 0.6 % (0.1-2.0); Eosinophils % 2.5 % (0.1-12.0); Hematocrit 46.6 % (42.0-52.0); Hemoglobin 15.6 g/dL (14.1-18.0); Lymphocytes # 1.8 K/mm3 (0.7-4.5); Lymphocytes % 22.5 % (10-50); Mean Corpuscular HGB Conc 33.5 g/dL (31.8-35.4); Mean Corpuscular Hemoglobin 29.7 pg (27.0-31.2); Mean Corpuscular Volume 88.8 fl (80-94); Monocytes # 0.7 K/mm3 (0.1-1.0); Monocytes % 8.1 % (1.7-9.3); Neutrophils % 65.7 % (37.0-80.0); Platelet Count 201 K/mm3 (142-424); Red Blood Count 5.25 M/mm3 (4.60-6.20); White Blood Count 8.1 K/mm3 (4.8-10.8)
[2024-07-17] MEDS: IOPAMIDOL-370 (76%);100ML BOTTLE 75 ML IV (09:06)
[2024-07-17] MEDS: SODIUM CHLORIDE 0.9% 10ML SYR (RAD ONLY) 10 ML IV (09:06)
[2024-07-17 09:07] LABS: Influenza A, PCR Detected (NotDetected)
--- NOTE | 2024-07-17 09:55 | PC.NURSE ---
DR REDDY AT BEDSIDE TO UPDATE PT
[2024-07-17 13:35] LABS: HIV Combo NEGATIVE (Negative)
[2024-07-18 06:18] LABS: HCV Ab Non Reactive (Non Reactive)
== END 2024-07-17 10:04 | disposition home or self-care (01) ==
PROVIDERS: Emergency Provider Student in an Organized Health Care Education/Training Program; PCP Family Medicine
DX: K11.20 Sialoadenitis, unspecified (principal); J10.1 Influenza due to other identified influenza virus with other respiratory manifestations; R22.1 Localized swelling, mass and lump, neck
CPT/HCPCS: 70491; 71046; 80053; 85025; 86803; 87389; 87636; 96360; 99285; J7030; Q9967